=== PATIENT | male | born 1935 | race Caucasian/White ===

== ENCOUNTER 2017-11-06 09:51 | Day surgery (SDC) | payer MEDICARE, MEDICAID ==
[2017-11-06] MEDS: CEFUROXIME 1MG/0.1ML INTRACAMERAL INJ As Ordered (06:54)
[~2017-11-06 09:51] MED LIST: ACETAMINOPHEN 325 MG TAB PO; PHENYLEPHRINE HCL 10 % OPHTH. SOL 5ML OS
[2017-11-06] MEDS: PHENYLEPHRINE 2.5% OPHTH SOL 2ML OS (10:21)
[2017-11-06] MEDS: TROPICAMIDE 1% OPHTH SOLN 2ML OS (10:21)
[2017-11-06] MEDS: CYCLOPENTOLATE 2% OPHTH SOLN 2ML BTL OS (10:21)
[2017-11-06] MEDS: OFLOXACIN 0.3 % (OCUFLOX) OPTH SOL 5ML OS (10:21)
[2017-11-06] MEDS: LIDOCAINE 3.5 % 1ML OPHTH TOPICAL GEL OU (10:22)
[2017-11-06] MEDS ORDERED: MIDAZOLAM INJ 2 MG/2 ML VIAL (J2250) As Ordered (11:45)
[2017-11-06] MEDS ORDERED: fentaNYL 100 MCG/2 ML INJECTION (J3010) As Ordered (11:45)
[2017-11-06] MEDS: POVIDONE-IODINE 5% OPHTH PREP SOL 30ML As Ordered (11:46)
[2017-11-06] MEDS: HEALON DUET (HEALON 10MG/ML 0.55ML & HEALON ENDOCOAT 30MG/ML 0.85ML) As Ordered (11:46)
[2017-11-06] MEDS: BSS with VANC/TOB/EPI for EYE CASES IR (11:47)
[2017-11-06] MEDS: LIDOCAINE 1% SDV 5 ML VIAL As Ordered (11:47)
[2017-11-06] MEDS: MOXIFLOXACIN IN BSS 0.25MG/0.25ML INTRACAMERAL INJ (OR EYE ONLY)(J2280) As Ordered (11:47)
[2017-11-06] MEDS: TRIAMCINOLONE PRES FR 40 MG/ML 1ML(TRIESENCE)(OR EYE ONLY)(J3300 PER 1MG) As Ordered (11:47)
[2017-11-06] MEDS ORDERED: TRIMETHOBENZAMIDE 300 MG CAP PO (12:15)
[2017-11-06] MEDS: AcetaZOLAMIDE 500 MG ER CAP PO (12:28)
== END 2017-11-06 12:36 | disposition home or self-care (01) ==
LOC: M SDC 12:36
DX: H26.9 Unspecified cataract (principal); D64.9 Anemia, unspecified; Z79.899 Other long term (current) drug therapy; Z95.0 Presence of cardiac pacemaker
CPT/HCPCS: 66984